=== PATIENT | male | born 1955 ===

== ENCOUNTER 2018-03-07 22:20 | Emergency (ER) | payer BC ==
[2018-03-07 22:28] VITALS: BMI 25.6
--- NOTE | 2018-03-07 22:49 | ED PDOC ---
Arrival/HPI - General Time Seen by Provider: 03/07/18 22:40 Historian: Patient - History of Present Illness Narrative History of Present Illness (Text): 03/07/18 22:47 62 year old male, whose past medical history includes heart disease and alcohol abuse, presents to the emergency department accompanied by daughter complaining of chest pain and shortness of breath that began approximately 3 hours ago. Patient describes the chest pain as a "needle" sensation. Patient reports to be drinking alcohol tonight and is a recovering alcoholic. He states he did not take Aspirin today. Patient is awake, alert, and answering questions appropriately. Patient denies any fever, chills, nausea, vomiting, diarrhea, urinary symptoms, back pain, neck pain, headache, dizziness, or any other complaints. PMD: [facility] Time/Duration: Other (3 hours) Symptom Onset: Sudden Symptom Course: Unchanged Quality: Other ("needle" ) Activities at Onset: Light Context: Home Past Medical History - Provider Review Nursing Documentation Reviewed: Yes Family/Social History - Physician Review Nursing Documentation Reviewed: Yes Family/Social History: No Known Family HX Allergies/Home Meds Allergies/Adverse Reactions: Allergies No Known Allergies Allergy (Verified 03/07/18 22:28) Home Medications: Home Meds Medication Instructions Recorded Confirmed Aspirin [Aspirin Chewable] 81 mg PO DAILY 03/07/18 03/07/18 Atorvastatin [Lipitor] 20 mg PO DAILY 03/07/18 03/07/18 Clopidogrel [Plavix] 75 mg PO DAILY 03/07/18 03/07/18 Diclofenac Sodium [Voltaren] 50 mg PO BID 03/07/18 03/07/18 Diphenhydramine HCl [Z-Sleep] 25 mg PO HS 03/07/18 03/07/18 Isosorbide Mononitrate [Isosorbide 30 mg PO DAILY 03/07/18 03/07/18 Mononitrate ER] Lisinopril [Zestril] 2.5 mg PO DAILY 03/07/18 03/07/18 Metoprolol Succinate [Toprol Xl] 25 mg PO DAILY 03/07/18 03/07/18 Multivitamin with Iron [Tab-A-Bryan 1 tab PO DAILY 03/07/18 03/07/18 with Iron] NIFEdipine ER [Procardia XL] 30 mg PO HS 03/07/18 03/07/18 Tamsulosin [Flomax] 0.4 mg PO DAILY 03/07/18 03/07/18 Review of Systems - Physician Review All systems were reviewed & negative as marked: Yes - Review of Systems Constitutional: absent: Fevers, Other (Chills) Respiratory: SOB Cardiovascular: Chest Pain Gastrointestinal: absent: Diarrhea, Nausea, Vomiting Genitourinary Male: absent: Dysuria, Frequency, Hematuria Musculoskeletal: absent: Back Pain, Neck Pain Neurological: absent: Headache, Dizziness Physical Exam Vital Signs Reviewed: Yes Vital Signs Temp Pulse Resp BP Pulse Ox 03/07/18 23:48 98.2 F 98 H 18 101/62 98 03/07/18 22:26 98.3 F 106 H 18 98/57 L 98 Temperature: Afebrile Blood Pressure: Normal Pulse: Tachycardic Respiratory Rate: Normal Appearance: Positive for: Well-Appearing, Non-Toxic, Comfortable Pain Distress: None Mental Status: Positive for: Alert and Oriented X 3 Finger Stick Blood Glucose: 148 - Systems Exam Head: Present: Atraumatic, Normocephalic Pupils: Present: PERRL Extroacular Muscles: Present: EOMI Conjunctiva: Present: Normal Mouth: Present: Moist Mucous Membranes Neck: Present: Normal Range of Motion Respiratory/Chest: Present: Clear to Auscultation, Good Air Exchange. No: Respiratory Distress, Accessory Muscle Use Cardiovascular: Present: Regular Rate and Rhythm, Normal S1, S2. No: Murmurs Abdomen: No: Tenderness, Distention, Peritoneal Signs Back: Present: Normal Inspection Upper Extremity: Present: Normal Inspection. No: Cyanosis, Edema Lower Extremity: Present: Normal Inspection. No: Edema Neurological: Present: GCS=15, CN II-XII Intact, Speech Normal Skin: Present: Warm, Dry, Normal Color. No: Rashes Psychiatric: Present: Alert, Oriented x 3, Normal Insight, Normal Concentration Medical Decision Making ED Course and Treatment: 03/07/18 22:49 Impression: 62 year old male presents complaining of chest pain and sob that began approximately 3 hours ago. Admits to drinking tonight. upon arriavel pt is awake alert cooperative answering squestions, accompanied by daughter Plan: -- EKG -- Labs -- Chest X-ray -- Aspirin, Potassium Chloride -- Urinalysis -- Reassess and disposition Progress Notes: EKG shows Sinus Tachycardia at [address]/T wave changes with no pervious for comparison. Interpreted by me. 03/07/18 23:35 CXR Impression: As read by me, negative. cardiomegaly 03/07/18 23:40 Leaving Against Medical Advice (AMA): The patient is choosing to leave against medical advice. I have personally explained to the patient that choosing to do so may result in permanent bodily harm or . I have discussed at great length that without further evaluation and monitoring there may be unforeseen circumstances and/or deterioration causing permanent bodily harm or as a result of their choice. The patient is alert, oriented, and shows the mental capacity to make clear decisions regarding the patients health care at this time. The patient continues to wish to leave against medical advice. In light of the patients decision to leave against medical advice, follow-up has been arranged and the patient is aware of the importance to following up as instructed. The patient has been advised that they should return to the emergency room immediately if they change their mind at any time, or if their condition begins to change or worsen in any way. 03/08/18 04:20 pt refuses admission. daughter at bedside agrees to accept responsibility for pt , but does not sign ama. agrees to take pt home. pt signs ama. oriented x 3 - Lab Interpretations Lab Results: 03/07/18 22:30 03/07/18 22:30 Lab Results 03/07/18 22:30: Sodium 144, Potassium 3.2 L, Chloride 100, Carbon Dioxide 21, Anion Gap 26 H, BUN 13, Creatinine 2.9 H, Est GFR ( Amer) 27, Est GFR ( Non-Af Amer) 22, Random Glucose 150 H, Calcium 9.7, Magnesium 1.9, Total Bilirubin 0.6, AST 52, ALT 29, Alkaline Phosphatase 89, Lactate Dehydrogenase 490, Total Creatine Kinase 523 H, CK-MB (CK-2) 2.7, CK-MB (CK-2) % Cancelled, Troponin I 0.02, NT-Pro-B Natriuret Pep 58.1, Total Protein 7.7, Albumin 4.6, Globulin 3.1, Albumin/Globulin Ratio 1.5 03/07/18 22:30: PT 10.9, INR 0.96, APTT 26.6 03/07/18 22:30: WBC 8.1, RBC 4.50, Hgb 13.8 L, Hct 39.0 L, MCV 86.7, MCH 30.7, MCHC 35.4, RDW 14.5, Plt Count 233, MPV 9.2, Gran % 29.3 L, Lymph % (Auto) 56.1 H, Creek % (Auto) 6.6 H, Eos % (Auto) 7.1 H, Baso % (Auto) 0.9, Gran # 2.38, Lymph # (Auto) 4.6 H, Creek # (Auto) 0.5, Eos # (Auto) 0.6, Baso # (Auto) 0.07 I have reviewed the lab results: Yes - RAD Interpretation Radiology Orders: 03/07/18 22:47 CHEST PORTABLE [RAD] Stat - EKG Interpretation Interpreted by ED Physician: Yes Type: 12 lead EKG - Medication Orders Current Medication Orders: Discontinued Medications Aspirin (Aspirin) 325 mg PO STAT STA Stop: 03/07/18 22:48 Last Admin: 03/07/18 22:50 Dose: Not Given Non-Admin Reason: Patient Refused Potassium Chloride (K-Dur 20 Meq Er Tab) 40 meq PO STAT STA Stop: 03/07/18 23:10 Last Admin: 03/07/18 22:50 Dose: Not Given Non-Admin Reason: Patient Refused - Scribe Statement The provider has reviewed the documentation as recorded by the Eliseo Holguin Provider Scribe Attestation: All medical record entries made by the Eliseo were at my direction and personally dictated by me. I have reviewed the chart and agree that the record accurately reflects my personal performance of the history, physical exam, medical decision making, and the department course for this patient. I have also personally directed, reviewed, and agree with the discharge instructions and disposition. Disposition/Present on Arrival - Present on Arrival Any Indicators Present on Arrival: No - Disposition Have Diagnosis and Disposition been Completed?: Yes Diagnosis: Chest pain, Renal insufficiency Disposition: AGAINST MEDICAL ADVICE Disposition Time: 23:00 Condition: UNKNOWN Discharge Instructions (ExitCare): Chronic Kidney Disease, Leaving Against Medical Advice, Chest Pain (ED) Additional Instructions: please discuss your lab results with your doctor/clinic. you are declining observation in the hospital. you creatinine was 2.9. you may need further workup as an outpatient. return to er with worsening symptoms or concerns. Referrals: [facility] [Outside] - Follow up with primary [facility] [Outside] - Follow up with primary Butch Shipman MD [Staff Provider] - Follow up with primary Colten Li MD [Staff Provider] - Follow up with primary Forms: [employer] ([place])
[2018-03-07 23:02] VITALS: RESP 18; O2SAT 98
[2018-03-07 23:05] LABS: BASO # 0.07 K/mm3 (0.0-2.0); BASO % 0.9 % (0.0-3.0); EOS # 0.6 (0.0-0.7); EOS % 7.1 % (1.5-5.0); GRAN # 2.38 (1.4-6.5); GRAN % 29.3 % (50.0-68.0); HEMOGLOBIN 13.8 g/dL (14.0-18.0); LYMPH # 4.6 (1.2-3.4); LYMPH % 56.1 % (22.0-35.0); MEAN CELL VOLUME 86.7 fl (80.0-105.0); MEAN CORPUSCULAR HEMOGLOBIN 30.7 pg (25.0-35.0); MEAN CORPUSCULAR HGB CONC 35.4 g/dl (31.0-37.0); MEAN PLATELET VOLUME 9.2 fl (7.0-11.0); MONO # 0.5 (0.1-0.6); MONO % 6.6 % (1.0-6.0); RBC 4.5 10^6/uL (3.5-6.1); RED CELL DISTRIBUTION WIDTH 14.5 % (11.5-14.5); WHITE BLOOD COUNT 8.1 10^3/ul (4.5-11.0)
[2018-03-07 23:08] LABS: ALB/GLOB RATIO 1.5 (1.1-1.8); ALBUMIN 4.6 g/dL (3.0-4.8); CALCIUM 9.7 mg/dL (8.4-10.5); INR 0.96; PROTHROMBIN TIME 10.9 SECONDS (9.4-12.5)
[2018-03-07] MEDS ORDERED: Potassium Chloride 20 mEq ER Tab PO STA (23:09)
[2018-03-07 23:10] LABS: PARTIAL THROMBOPLASTIN TIME 26.6 Seconds (25.1-36.5)
[2018-03-07 23:19] LABS: B-TYPE NATRIURETIC PEPTIDE 58.1 pg/mL (0-450); TROPONIN I 0.02 ng/mL
[2018-03-07 23:31] LABS: CK-MB 2.7 ng/mL (0.0-3.6)
[2018-03-08 03:34] VITALS: BP 101/62; PULSE 98; TEMP 98.2
--- NOTE | 2018-03-08 09:13 | RAD ---
Date of service: 03/07/2018 HISTORY: cp COMPARISON: No prior. FINDINGS: LUNGS: No active pulmonary disease. PLEURA: No significant pleural effusion identified, no pneumothorax apparent. CARDIOVASCULAR: Mild cardiomegaly OSSEOUS STRUCTURES: Sternal wires VISUALIZED UPPER ABDOMEN: Normal. OTHER FINDINGS: None. IMPRESSION: No active disease.
--- NOTE | 2018-03-09 06:56 | CARD ---
APPROVED REPORT Date of service: 03/07/2018 EKG Measurement Heart [id number] <Conclusion> Sinus tachycardia with 1st degree AV block Inferior infarct, age undetermined Abnormal ECG
== END 2018-03-07 23:48 | disposition left against medical advice (07) ==
LOC: ED 22:20
DX: R07.9 Chest pain, unspecified (principal); N28.9 Disorder of kidney and ureter, unspecified